=== PATIENT | male | born 1995 | race Caucasian/White ===

== ENCOUNTER 2020-04-26 09:07 | Outpatient (REF) | payer OTHER, SELFPAY | END 2020-04-26 09:08 | disposition home or self-care (01) | LOC: HO.LAB 09:07 | PROVIDERS: Visit Provider Internal Medicine | DX: Z20.828 Contact with and (suspected) exposure to other viral communicable diseases (principal) | CPT/HCPCS: C9803; U0003 ==

== ENCOUNTER 2020-06-05 12:21 | Outpatient (REF) | payer OTHER, SELFPAY | END 2020-06-05 12:22 | disposition home or self-care (01) | LOC: HO.LAB 12:21 | PROVIDERS: PCP Internal Medicine; Visit Provider Internal Medicine | DX: Z20.828 Contact with and (suspected) exposure to other viral communicable diseases (principal) | CPT/HCPCS: C9803; U0003 ==